=== PATIENT | female | born 1965 | race Caucasian/White ===

== ENCOUNTER 2017-11-04 05:08 | Inpatient (IN) | payer OTHER ==
[2017-10-30 08:17] VITALS: BMI 23.5
[~2017-11-04 05:08] MED LIST: BUPIVACAINE HCL/PF 0.5% (5MG/ML) 10 ML VIAL IJ ONE
[2017-11-04] MEDS ORDERED: BUPIVACAINE HCL/PF 0.5% (5MG/ML) 10 ML VIAL ONE (07:32)
[2017-11-04] MEDS ORDERED: LIDOCAINE 1%/EPI 1:100000 (20 ML MULTI DOSE VIAL) ONE (07:32)
[2017-11-04] MEDS ORDERED: GENTAMICIN SO4 80 MG/2 ML VIAL ONE (07:32)
[2017-11-04] MEDS ORDERED: THROMBIN (BOVINE) 5,000 UNIT VIAL TP ONE (07:33)
[2017-11-04] MEDS ORDERED: PROPOFOL 20 ML ONE (07:43)
[2017-11-04] MEDS ORDERED: MIDAZOLAM HCL 2 MG/2 ML SINGLE DOSE VIAL ONE (07:43)
[2017-11-04] MEDS ORDERED: ROCURONIUM BROMIDE 50 MG/5 ML VIAL ONE (07:45)
[2017-11-04] MEDS ORDERED: DEXAMETHASONE SOD PHOSPHATE 4 MG/1 ML VIAL ONE (07:46)
[2017-11-04] MEDS ORDERED: ceFAZolin SODIUM 1 GM VIAL ONE ×2 (07:46→08:20)
[2017-11-04] MEDS ORDERED: LIDOCAINE HCL/PF 2% SDV 5ML VIAL ONE (07:46)
[2017-11-04] MEDS ORDERED: SODIUM CHLORIDE 0.9% P/F 10 ML VIAL IJ ONE (07:46)
[2017-11-04] MEDS ORDERED: ONDANSETRON 4 MG/2 ML VIAL ONE (07:46)
[2017-11-04] MEDS ORDERED: VANCOMYCIN 1,000 MG VIAL (RESTRICTED TO ID ONLY) ONE (08:20)
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
[2017-11-04] MEDS ORDERED: ceFAZolin SODIUM 1 GM VIAL IVPB ONE (08:43)
[2017-11-04] MEDS ORDERED: VANCOMYCIN 1,000 MG VIAL (RESTRICTED TO ID ONLY) IVPB ONE (08:45)
[2017-11-04] MEDS ORDERED: LIDOCAINE 1%/EPI 1:100000 (20 ML MULTI DOSE VIAL) INF ONE (09:14)
[2017-11-04] MEDS ORDERED: GLYCOPYRROLATE 0.2 MG/1 ML VIAL ONE (10:24)
[2017-11-04] MEDS ORDERED: NEOSTIGMINE METHYLSULFATE 0.5 MG/ML - 10 ML MDV ONE (10:25)
[2017-11-04] MEDS ORDERED: GlUCAGON HUMAN RECOMBINANT 1 MG/VIAL ONE (10:26)
[2017-11-04] MEDS ORDERED: LIDOCAINE HCL 2% 100 MG/5 ML DISP.SYRIN ONE (10:40)
[2017-11-04] MEDS ORDERED: METOPROLOL TARTRATE 5 MG/5 ML VIAL ONE ×2 (10:46→10:47)
[2017-11-04] MEDS ORDERED: HYDROmorphone *PCA* 10MG/50ML DISP.SYRIN PCA SCH (11:00)
[2017-11-04] MEDS ORDERED: DEXAMETHASONE SOD PHOSPHATE 4 MG/1 ML VIAL IVPUSH PRN (11:00)
[2017-11-04] MEDS ORDERED: PROMETHAZINE HCL 25 MG/1 ML VIAL IVPB PRN (11:00)
[2017-11-04] MEDS ORDERED: PROMETHAZINE HCL 25 MG/1 ML VIAL IVPUSH PRN (11:00)
[2017-11-04] MEDS ORDERED: LACTATED RINGERS SOLUTION 1,000 ML IV SCH (11:00)
[2017-11-04] MEDS ORDERED: ONDANSETRON 4 MG/2 ML VIAL IVPUSH PRN ×2 (11:00)
[2017-11-04] MEDS ORDERED: ACETAMINOPHEN 325 MG TABLET (FP) PO PRN (11:11)
[2017-11-04] MEDS ORDERED: oxyCODONE HCL 5 MG TABLET PO PRN (11:21)
[2017-11-04] MEDS ORDERED: morphine CARPU-JECT 4 MG/1 ML DISP.SYRIN IVPUSH PRN (11:21)
--- NOTE | 2017-11-04 11:43 | OP ---
Operative Note - Note: Operative Date: 11/04/17 Pre-Operative Diagnosis: Cervical splondylolisthesis Operation: Anterior Cervical Discectomy and fusion C5-C6, C6-C7 Post-Operative Diagnosis: Same as Pre-op Surgeon: Amrit Chino Attendant Coin Operated Laundry: Maxine Levine Anesthesiologist/MISSILE AND MISSILE CHECKOUT TECHNICIAN: Ernie Laureano Anesthesia: General Specimens Removed: C5-C6 disc and C6-C7 disc Estimated Blood Loss (mls): 20 Fluid Volume Replaced (mls): 700 Operative Report Dictated: Yes
--- NOTE | 2017-11-04 11:45 | SURG ---
Surgery Registered Art Therapist Note Registered Art Therapist: Maxine Levine PA-C Date of Service: 11/04/17 Diagnosis: Cervical Splondylolisthesis Procedure: C5-C6, C6-C7 ACDF I was present for the entirety of the operative procedure. For further detail, please refer to operative report. Visit type - Case Type Case Type: Scheduled Admission - Emergency Emergency Visit: No - New patient This patient is new to me today: Yes Date on this admission: 11/04/17
[2017-11-04] MEDS ORDERED: ACETAMINOPHEN 325 MG TABLET (FP) PO SCH (11:46)
[2017-11-04] MEDS ORDERED: PROMETHAZINE HCL 25 MG/1 ML VIAL ONE (11:47)
--- NOTE | 2017-11-04 15:09 | CONSULT ---
Consult Consult Specialty:: Internal Medicine Referred by:: Dr Chino Reason for Consultation:: Medical management - History of Present Illness Chief Complaint: Unable to obtain History of Present Illness: Ms Summers is a 52 year old female who is s/p cervical discectomy and fusion. She is recently out of the OR and is still under the influence of anesthesia. While able to arouse, unable to elicit any subjective from patient secondary to anesthesia. 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 History of Recent Travel: No Home Medications - Allergies Allergies/Adverse Reactions: Allergies Allergy/AdvReac Type Severity Reaction Status Date / Time No Known Allergies Allergy Verified 11/04/17 06:49 - Home Medications Home Medications: Ambulatory Orders Ibuprofen [Advil -] 400 mg PO TID PRN 10/30/17 Family Disease History - Family Disease History Family History: Unable to Obtain Review of Systems Unable to obtain ROS, reason: anesthesia Physical Exam Vital Signs: Vital Signs Temperature 37.0 C 11/04/17 10:48 Pulse Rate 68 11/04/17 14:35 Respiratory Rate 18 11/04/17 14:35 Blood Pressure 131/71 11/04/17 14:35 O2 Sat by Pulse Oximetry (%) 100 11/04/17 14:35 Constitutional: Yes: No Distress, Calm, Other (lethargic but arousable) Cardiovascular: Yes: Regular Rate and Rhythm. No: Gallop, Murmur, Rub Respiratory: Yes: Regular, CTA Bilaterally. No: Rales, Rhonchi, Wheezes Gastrointestinal: Yes: Normal Bowel Sounds, Soft. No: Distention, Tenderness Extremities: Yes: WNL Edema: No Imaging - Results Cat Scan: Report Reviewed (pending), Image Reviewed Problem List - Problems (1) Spondylolysis with spondylolisthesis Assessment/Plan: -s/p surgery -per neurosurgery Code(s): M43.00 - SPONDYLOLYSIS, SITE UNSPECIFIED; M43.10 - SPONDYLOLISTHESIS, SITE UNSPECIFIED (2) Migraine Assessment/Plan: -history of -monitor Code(s): G43.909 - MIGRAINE, UNSP, NOT INTRACTABLE, WITHOUT STATUS MIGRAINOSUS (3) Pain Assessment/Plan: -continue dilaudid strategic insights lead at this time Code(s): R52 - PAIN, UNSPECIFIED (4) Left bundle branch block Assessment/Plan: -case d/w Dr Acosta -chronic -previous work up in past showed no pathology -stable Code(s): I44.7 - LEFT BUNDLE-BRANCH BLOCK, UNSPECIFIED
[2017-11-04] MEDS: morphine CARPU-JECT 10 MG/1 ML DISP.SYRIN IVPUSH PRN (15:50)
[2017-11-04] MEDS: LACTATED RINGERS SOLUTION 1,000 ML IV SCH ×2 (15:58→23:26)
[2017-11-04] MEDS ORDERED: CEFAZOLIN 1 GM/D5W 1 GM/50 ML BAG IVPB SCH (18:00)
[2017-11-04] MEDS: ACETAMINOPHEN 325 MG TABLET (FP) PO SCH (18:34)
[2017-11-04] MEDS ORDERED: CEFAZOLIN 1 GM PUSH 1 GM/10 ML DISP.SYRIN IVPUSH SCH (18:35)
[2017-11-04] MEDS: oxyCODONE HCL 5 MG TABLET PO PRN (19:45)
[2017-11-04] MEDS: CEFAZOLIN 1 GM PUSH 1 GM/10 ML DISP.SYRIN IVPUSH SCH (19:53)
[2017-11-04] MEDS ORDERED: PT OWN MED DRAWER 7, Y5N ONE (21:08)
[2017-11-04] MEDS: HEPARIN NA (PORCINE) 5,000 UNITS/ML 1ML VIAL SQ SCH (21:17)
[2017-11-05] MEDS: ACETAMINOPHEN 325 MG TABLET (FP) PO SCH ×5 (00:35→23:12)
[2017-11-05] MEDS: CEFAZOLIN 1 GM PUSH 1 GM/10 ML DISP.SYRIN IVPUSH SCH ×3 (01:11→17:20)
[2017-11-05] MEDS: HEPARIN NA (PORCINE) 5,000 UNITS/ML 1ML VIAL SQ SCH ×3 (05:37→21:31)
[2017-11-05] MEDS: oxyCODONE HCL 5 MG TABLET PO PRN ×3 (05:47→17:19)
--- NOTE | 2017-11-05 07:55 | PN ---
Progress Note (short form) - Note Progress Note: Surgery POD #1 C5-C6, C6-C7 ADCF patient seen and examined at bedside with no new complaints. The patient states she has a slight headache which is the same as her pre-op presentation and baseline for her. She says her radicular pain is already improved but paresthesias in UE unchanged. She has been tolerating a diet but says it's painful to swallow. She denies any CP, SOB, N/V/D or blurred vision. She is OOB with assist and voiding spontaneously. Vital Signs Temp 98.2 F 11/05/17 06:14 Pulse 64 11/05/17 06:14 Resp 20 11/05/17 06:14 BP 98/58 11/05/17 06:14 Pulse Ox 100 11/04/17 21:00 Intake & Output 11/04/17 11/04/17 11/05/17 11:59 23:59 11:59 Intake Total 3489 186 8386 Output Total 100 335 245 Balance 950 -235 1430 Intake: IV 0320 322 4142 Lactated Ringers Solution 1375 1,000 ml @ 125 mls/hr IV ASDIR DOUGLAS Rx#: [id number] Oral 300 Output: Drainage 35 45 Right Anterior Neck 45 Urine 50 300 200 Void 300 200 Estimated Blood Loss 50 Labs: pending PE: A&Ox 3, NAD unlabored resp on RA Dressing c/d/I with no evidence of d/c, no evidence of erythema or edema in surrounding tissue. RAKEL drain in place with SS d/c, put out 35 yesterday B/L UE sensation to light touch in tact throughout with 5/5 strength and well perfused distally B/L LE compartments soft, supple and non-tender with SCDs in place, Feet warm and well perfused with +2 pedal pulses and 5/5 dorsi and plantar flexion Assessment: POD #1 multilevel ACDF doing well. Plan: 1) Continue DVT prophylaxis b/l scds and heparin 2) C-Collar 23h/day, may remove to shower 3) no pillow behind head 4) Continue ancef while j/p drain in place 5) OOB as tolerated, up to chair for meals Problem List - Problems (1) Spondylolysis with spondylolisthesis Code(s): M43.00 - SPONDYLOLYSIS, SITE UNSPECIFIED; M43.10 - SPONDYLOLISTHESIS, SITE UNSPECIFIED
[2017-11-05 08:22] LABS: BASO % 0.3 % (0-2.0); HEMATOCRIT 35.1 % (32.4-45.2); HEMOGLOBIN 11.5 GM/dL (10.7-15.3); MCH 29.8 pg (25.7-33.7); MCHC 32.7 g/dl (32.0-36.0); MEAN PLT VOLUME 9.7 fl (7.5-11.1); MONO % 6.2 % (3.8-10.2); NEUT % 68.5 % (42.8-82.8); PLATELET COUNT 153 K/MM3 (134-434); RBC 3.86 M/mm3 (3.60-5.2); RDW 13.5 % (11.6-15.6)
[2017-11-05] MEDS: morphine CARPU-JECT 10 MG/1 ML DISP.SYRIN IVPUSH PRN ×3 (08:28→22:46)
[2017-11-05] MEDS: LACTATED RINGERS SOLUTION 1,000 ML IV SCH ×2 (08:32→15:46)
[2017-11-05 08:56] LABS: ALBUMIN 3.2 g/dl (3.4-5.0); ANION GAP 7 (8-16); BLOOD UREA NITROGEN 16 mg/dL (7-18); CALCIUM 8.7 mg/dL (8.5-10.1); CHLORIDE 102 mmol/L (98-107); CO2 33 mmol/L (21-32); CREATININE 0.7 mg/dL (0.55-1.02); GLUCOSE,RANDOM 92 mg/dL (74-106); MAGNESIUM 2.1 mg/dL (1.8-2.4); POTASSIUM 3.8 mmol/L (3.5-5.1); SGOT/AST 14 U/L (15-37); SGPT/ALT 20 U/L (12-78); SODIUM 142 mmol/L (136-145)
[2017-11-05 08:59] LABS: ALK PHOS 56 U/L (45-117); BILIRUBIN,TOTAL 0.4 mg/dL (0.2-1.0); PHOSPHOROUS 3.6 mg/dL (2.5-4.9); TOT PROT 5.7 g/dl (6.4-8.2)
--- NOTE | 2017-11-05 10:43 | PN ---
Progress Note, Physician Chief Complaint: Ms Summers says she feels terrible. States she has pain on swallowing and is having neck pain. - Current Medication List Current Medications: Active Medications Acetaminophen (Tylenol -) 650 mg PO Q6H [facility] Last Admin: 11/05/17 06:00 Dose: Not Given Diphenhydramine HCl (Benadryl Injection -) 12.5 mg IVPUSH ONCE PRN PRN Reason: FOR ITCHING Heparin Sodium (Porcine) (Heparin -) 5,000 unit SQ TID [facility] Last Admin: 11/05/17 05:37 Dose: 5,000 unit Lactated Ringer's (Lactated Ringers Solution) 1,000 mls @ 125 mls/hr IV ASDIR [facility] Last Admin: 11/05/17 08:32 Dose: 125 mls/hr Cefazolin Sodium (Ancef -) 1 gm in 10 mls @ 100 mls/hr IVPUSH Q8H-IV [facility] Last Admin: 11/05/17 01:11 Dose: 100 mls/hr Morphine Sulfate (Morphine Injection -) 3 mg IVPUSH Q4H PRN PRN Reason: PAIN LEVEL 7 - 10 Last Admin: 11/05/17 08:28 Dose: 3 mg Ondansetron HCl (Zofran Injection) 4 mg IVPUSH Q6H PRN PRN Reason: NAUSEA AND/OR VOMITING Oxycodone HCl (Roxicodone -) 5 mg PO Q4H PRN PRN Reason: PAIN LEVEL 1-4 Oxycodone HCl (Roxicodone -) 10 mg PO Q4H PRN PRN Reason: PAIN LEVEL 4 - 6 Last Admin: 11/05/17 05:47 Dose: 10 mg - Objective Vital Signs: Vital Signs Temperature 36.8 C 11/05/17 06:14 Pulse Rate 64 11/05/17 06:14 Respiratory Rate 20 11/05/17 06:14 Blood Pressure 98/58 11/05/17 06:14 O2 Sat by Pulse Oximetry (%) 100 11/04/17 21:00 Constitutional: Yes: Well Nourished, No Distress, Calm Neck: Yes: Other (in brace, RAKEL drain in place) Cardiovascular: Yes: Regular Rate and Rhythm. No: Gallop, Murmur, Rub Respiratory: Yes: Regular, CTA Bilaterally. No: Rales, Rhonchi, Wheezes Gastrointestinal: Yes: Normal Bowel Sounds, Soft. No: Distention, Tenderness Extremities: Yes: WNL Edema: No Labs: CBC, BMP 11/05/17 05:40 11/05/17 05:40 Problem List - Problems (1) Spondylolysis with spondylolisthesis Code(s): M43.00 - SPONDYLOLYSIS, SITE UNSPECIFIED; M43.10 - SPONDYLOLISTHESIS, SITE UNSPECIFIED (2) Migraine Code(s): G43.909 - MIGRAINE, UNSP, NOT INTRACTABLE, WITHOUT STATUS MIGRAINOSUS (3) Pain Code(s): R52 - PAIN, UNSPECIFIED (4) Left bundle branch block Code(s): I44.7 - LEFT BUNDLE-BRANCH BLOCK, UNSPECIFIED Assessment/Plan (1) Spondylolysis with spondylolisthesis Assessment/Plan: -neurosurgery note reviewed -continue empiric antibiotics Code(s): M43.00 - SPONDYLOLYSIS, SITE UNSPECIFIED; M43.10 - SPONDYLOLISTHESIS, SITE UNSPECIFIED (2) Migraine Assessment/Plan: -quiescent Code(s): G43.909 - MIGRAINE, UNSP, NOT INTRACTABLE, WITHOUT STATUS MIGRAINOSUS (3) Pain Assessment/Plan: -pain control per neurosurgery Code(s): R52 - PAIN, UNSPECIFIED (4) Left bundle branch block Assessment/Plan: -stable and unchanged Code(s): I44.7 - LEFT BUNDLE-BRANCH BLOCK, UNSPECIFIED
--- NOTE | 2017-11-05 13:57 | PN ---
Progress Note (short form) - Note Progress Note: Patient seen. Doing well on POD#1 after C5-C7 ACDF under [facility]. Dilaudid LOAN ANALYST was not started yesterday. Today pt is c/o intermittent pain being succefully rxd with MSO4 ivp and oxycodone prn. No sig N/V/pruritis/sedation. No recall or anesthesia related complications. Plan: cont present managment and recall prn
[2017-11-05] MEDS ORDERED: PT OWN MED DRAWER 7, Y5N ONE (19:11)
[2017-11-06] MEDS: morphine CARPU-JECT 10 MG/1 ML DISP.SYRIN IVPUSH PRN ×3 (03:56→18:25)
[2017-11-06] MEDS: HEPARIN NA (PORCINE) 5,000 UNITS/ML 1ML VIAL SQ SCH ×3 (05:58→21:00)
[2017-11-06] MEDS: ACETAMINOPHEN 325 MG TABLET (FP) PO SCH ×3 (05:59→20:49)
[2017-11-06] MEDS: oxyCODONE HCL 5 MG TABLET PO PRN ×4 (05:59→20:52)
[2017-11-06 08:03] LABS: BASO % 0.1 % (0-2.0); EOS % 0.1 % (0-4.5); HEMATOCRIT 34.9 % (32.4-45.2); HEMOGLOBIN 11.3 GM/dL (10.7-15.3); LYMPH % 14.4 % (8-40); MCH 29.6 pg (25.7-33.7); MCHC 32.4 g/dl (32.0-36.0); MEAN CELL VOLUME 91.4 fl (80-96); MEAN PLT VOLUME 9.5 fl (7.5-11.1); MONO % 5.9 % (3.8-10.2); NEUT % 79.5 % (42.8-82.8); PLATELET COUNT 121 K/MM3 (134-434); RBC 3.83 M/mm3 (3.60-5.2); RDW 13.6 % (11.6-15.6); WHITE BLOOD COUNT 9.3 K/mm3 (4.0-10.0)
[2017-11-06 08:24] LABS: CHLORIDE 100 mmol/L (98-107); POTASSIUM 3.8 mmol/L (3.5-5.1); SODIUM 139 mmol/L (136-145)
[2017-11-06 08:36] LABS: ALBUMIN 3.4 g/dl (3.4-5.0); ALK PHOS 55 U/L (45-117); ANION GAP 6 (8-16); BILIRUBIN,TOTAL 0.4 mg/dL (0.2-1.0); BLOOD UREA NITROGEN 13 mg/dL (7-18); CALCIUM 8.3 mg/dL (8.5-10.1); CO2 33 mmol/L (21-32); CREATININE 0.7 mg/dL (0.55-1.02); GLUCOSE,RANDOM 93 mg/dL (74-106); SGOT/AST 12 U/L (15-37); SGPT/ALT 20 U/L (12-78); TOT PROT 5.8 g/dl (6.4-8.2)
[2017-11-06] MEDS: ONDANSETRON 4 MG/2 ML VIAL IVPUSH PRN (09:02)
--- NOTE | 2017-11-06 09:24 | PN ---
Progress Note (short form) - Note Progress Note: Surgery POD #2 C5-C6, C6-C7 ADCF patient seen and examined at bedside. Patient states she is still having chest tightness and SOB when she ambulates. which she feels is related to her pain. She denies any H/A this morning but states her radicular pain and paresthesias in upper extremities remains unchanged. She has been tolerating liquids but says it's very painful to swallow, she has not wanted to eat solids 2/2 pain and nausea. She denies any vomiting or blurred vision. She is OOB with assist and voiding spontaneously. Vital Signs Temp 100.9 F H 18 06:00 Pulse 75 11/06/17 06:00 Resp 18 11/06/17 06:00 BP 121/56 11/06/17 06:00 Pulse Ox 100 11/05/17 21:00 Intake & Output 18 18 11/06/17 11:59 23:59 11:59 Intake Total 1675 250 Output Total 245 20 Balance 1430 230 Intake: IV 1375 Lactated Ringers Solution 1375 1,000 ml @ 125 mls/hr IV ASDIR DOUGLAS Rx#: [id number] Oral 300 250 Output: Drainage 45 20 Right Anterior Neck 45 20 Urine 200 Void 200 Other: Voiding Method Toilet Toilet # Unmeasured Voids Void 2 CBC, BMP 18/18 06:30 11/06/17 06:30 PE: A&Ox 3, NAD unlabored resp on 2L NC Lungs CTA B/L Dressing c/d/I, with ttp at drain site, no evidence of d/c or erythema in surrounding tissues. Mild edema surrounding incision site appropriate to status , trachea is midline. incision redressed with 4x4 and op sites x 2 B/L UE sensation to light touch in tact throughout with 5/5 strength and well perfused distally B/L LE compartments soft, supple and non-tender with SCDs in place, Feet warm and well perfused with +2 pedal pulses and 5/5 dorsi and plantar flexion Assessment: POD #2 multilevel ACDF with Some chest pain and SOB in the setting of negative CEx1 and evidence of early pna on CXR. Plan: 1) Continue DVT prophylaxis b/l scds and heparin 2) C-Collar 23h/day, may remove to shower 3) no pillow behind head 4) Cardiology consult appreciated 5) OOB as tolerated, up to chair for meals 6) trial O2 sats on RA, watch for desaturation. Evaluation and plan discussed with Dr Chino Problem List - Problems (1) Spondylolysis with spondylolisthesis Code(s): M43.00 - SPONDYLOLYSIS, SITE UNSPECIFIED; M43.10 - SPONDYLOLISTHESIS, SITE UNSPECIFIED
--- NOTE | 2017-11-06 12:33 | EKG ---
Test Reason : Blood Pressure : / mmHG Vent. Rate : 064 BPM Atrial Rate : 064 BPM P-R Int : 142 ms QRS Dur : 120 ms QT Int : 430 ms P-R-T Axes : 065 020 049 degrees QTc Int : 443 ms NORMAL SINUS RHYTHM LOW VOLTAGE QRS CANNOT RULE OUT ANTERIOR INFARCT , AGE UNDETERMINED ABNORMAL ECG WHEN COMPARED WITH ECG OF 25-APR-2011 15:37, QRS DURATION HAS INCREASED MINIMAL CRITERIA FOR ANTERIOR INFARCT ARE NOW PRESENT Confirmed by KARMEN PACHECO MD ([id number]) on 11/06/2017 12:33:15 PM Referred By: Confirmed By:KARMEN PACHECO MD
--- NOTE | 2017-11-06 12:36 | PN ---
Progress Note, Physician Chief Complaint: Ms Summers continues to not feel well. Complains of neck pain, difficulty swallowing, and chest tightness - Current Medication List Current Medications: Active Medications Acetaminophen (Tylenol -) 650 mg PO Q6H [facility] Last Admin: 11/06/17 05:59 Dose: 650 mg Diphenhydramine HCl (Benadryl Injection -) 12.5 mg IVPUSH ONCE PRN PRN Reason: FOR ITCHING Heparin Sodium (Porcine) (Heparin -) 5,000 unit SQ TID [facility] Last Admin: 11/06/17 05:58 Dose: 5,000 unit Morphine Sulfate (Morphine Injection -) 3 mg IVPUSH Q4H PRN PRN Reason: PAIN LEVEL 7 - 10 Last Admin: 11/06/17 09:02 Dose: 3 mg Ondansetron HCl (Zofran Injection) 4 mg IVPUSH Q6H PRN PRN Reason: NAUSEA AND/OR VOMITING Last Admin: 11/06/17 09:02 Dose: 4 mg Oxycodone HCl (Roxicodone -) 5 mg PO Q4H PRN PRN Reason: PAIN LEVEL 1-4 Last Admin: 11/05/17 21:01 Dose: 5 mg Oxycodone HCl (Roxicodone -) 10 mg PO Q4H PRN PRN Reason: PAIN LEVEL 4 - 6 Last Admin: 11/06/17 10:51 Dose: 10 mg - Objective Vital Signs: Vital Signs Temperature 38.3 C H 11/06/17 06:00 Pulse Rate 84 11/06/17 11:05 Respiratory Rate 18 11/06/17 06:00 Blood Pressure 121/56 11/06/17 06:00 O2 Sat by Pulse Oximetry (%) 94 L 11/06/17 11:05 Constitutional: Yes: Well Nourished, No Distress, Calm Neck: Yes: Other (in hard brace) Cardiovascular: Yes: Regular Rate and Rhythm. No: Gallop, Murmur, Rub Respiratory: Yes: Regular, CTA Bilaterally. No: Rales, Rhonchi, Wheezes Gastrointestinal: Yes: Normal Bowel Sounds, Soft. No: Distention, Tenderness Extremities: Yes: WNL Edema: No Labs: CBC, BMP 11/06/17 06:30 11/06/17 06:30 Problem List - Problems (1) Spondylolysis with spondylolisthesis Code(s): M43.00 - SPONDYLOLYSIS, SITE UNSPECIFIED; M43.10 - SPONDYLOLISTHESIS, SITE UNSPECIFIED (2) Migraine Code(s): G43.909 - MIGRAINE, UNSP, NOT INTRACTABLE, WITHOUT STATUS MIGRAINOSUS (3) Pain Code(s): R52 - PAIN, UNSPECIFIED (4) Left bundle branch block Code(s): I44.7 - LEFT BUNDLE-BRANCH BLOCK, UNSPECIFIED (5) Chest pain Code(s): R07.9 - CHEST PAIN, UNSPECIFIED (6) Atelectasis Code(s): J98.11 - ATELECTASIS Assessment/Plan (1) Spondylolysis with spondylolisthesis Assessment/Plan: -neurosurgery note reviewed -continue empiric antibiotics Code(s): M43.00 - SPONDYLOLYSIS, SITE UNSPECIFIED; M43.10 - SPONDYLOLISTHESIS, SITE UNSPECIFIED (2) Migraine Assessment/Plan: -quiescent Code(s): G43.909 - MIGRAINE, UNSP, NOT INTRACTABLE, WITHOUT STATUS MIGRAINOSUS (3) Pain Assessment/Plan: -pain control per neurosurgery Code(s): R52 - PAIN, UNSPECIFIED (4) Left bundle branch block Assessment/Plan: -stable and unchanged Code(s): I44.7 - LEFT BUNDLE-BRANCH BLOCK, UNSPECIFIED (5) Atypical chest pain -EKG unchanged -cardiac enzymes negative -chest x-ray reviewed -low suspicion for ACS -cardiology consulted (6) Atelectasis -suspect cause of fevers and dyspnea -chest x-ray reviewed, low suspicion for pneumonia -continued use of incentive spirometer
--- NOTE | 2017-11-06 17:53 | CON.CARD ---
Cardiology Consult (text) - Consultation Consultation Note: CC: CP 52 yo with h/o LBBB female who is s/p cervical discectomy and fusion 11/04, hospital course complicated by CP. + substernal pressure/heaviness constant since yesterday. worse with deep breaths, small changes in position. worse lying down. seemed to worsen with exertion (unclear if from exertion or from need to take deeper breaths. radiation across the chest to both arms. + assoc shortness of breath. not ttp. no prior episodes of similar pain. no signficant improvement with pain medication. has not exercised for the past year due to back pain, h/a, chronic nausea. no palps, dizziness, orthopnea, pnd, le edema, bleeding. + pain with swallowing since surgery. --> poor po intake. IVF s/p surgery --> now off. pmhx/pshx: per phi. additionally Migraine (stress incontinence neck pain with upper extremity radiculopathy, limited c spine ROM) social hx: social etoh, Former smoker (quit in 1994) fam hx: mom--CHF in her late 60's but no CAD, sister--?CMPathy but she's athletic--runs marathons ros: per hpi. no rashes, visual disturbances, vomiting, diarrhea, f/c/s, congestion. Ambulatory Orders Ibuprofen [Advil -] 400 mg PO TID PRN 10/30/17 Oxycodone HCl/Acetaminophen [Percocet 5-325 mg Tablet] 1 - 2 tab PO Q6H PRN #30 tab MDD 8 11/05/17 Current Medications Acetaminophen (Tylenol -) 650 mg PO Q6H [facility] Last Admin: 11/06/17 14:32 Dose: 650 mg Diphenhydramine HCl (Benadryl Injection -) 12.5 mg IVPUSH ONCE PRN PRN Reason: FOR ITCHING Heparin Sodium (Porcine) (Heparin -) 5,000 unit SQ TID [facility] Last Admin: 11/06/17 14:33 Dose: 5,000 unit Morphine Sulfate (Morphine Injection -) 3 mg IVPUSH Q4H PRN PRN Reason: PAIN LEVEL 7 - 10 Last Admin: 11/06/17 09:02 Dose: 3 mg Ondansetron HCl (Zofran Injection) 4 mg IVPUSH Q6H PRN PRN Reason: NAUSEA AND/OR VOMITING Last Admin: 11/06/17 09:02 Dose: 4 mg Oxycodone HCl (Roxicodone -) 5 mg PO Q4H PRN PRN Reason: PAIN LEVEL 1-4 Last Admin: 11/05/17 21:01 Dose: 5 mg Oxycodone HCl (Roxicodone -) 10 mg PO Q4H PRN PRN Reason: PAIN LEVEL 4 - 6 Last Admin: 11/06/17 15:44 Dose: 10 mg Vital Signs - 24 hr 11/05/17 11/06/17 11/06/17 21:00 02:12 06:00 Temperature 99.6 F 100.9 F H Pulse Rate 74 75 Respiratory 18 18 18 Rate Blood Pressure 129/70 121/56 O2 Sat by Pulse 100 Oximetry (%) 11/06/17 11/06/17 11/06/17 09:00 10:00 11:05 Temperature 98.8 F Pulse Rate 70 84 Respiratory 18 Rate Blood Pressure 117/59 O2 Sat by Pulse 94 L 94 L Oximetry (%) 11/06/17 11/06/17 15:09 16:20 Temperature 98.2 F 99.4 F Pulse Rate 81 70 Respiratory 16 20 Rate Blood Pressure 119/58 122/61 O2 Sat by Pulse Oximetry (%) Intake & Output 11/04/17 11/05/17 11/06/17 11/07/17 07:59 07:59 07:59 07:59 Intake Total 2825 250 200 Output Total 680 20 Balance 2145 230 200 nad, calm unable to assess jvd (neck immbolizer) ctab, nl effort rrr nl s1, s2 no mrg. no ttp non-displaced pmi + bs soft nt nd, no hsm. ext with trace edema. no cyanosis or clubbing. + dp/pt no carotid bruits no jaundice, diaphoresis aaox3 CBC, BMP 11/06/17 06:30 11/06/17 06:30 Laboratory Tests 11/05/17 11/05/17 11/06/17 05:40 17:20 06:30 Magnesium 2.1 Total Bilirubin 0.4 AST 12 L ALT 20 Alkaline Phosphatase 55 Creatine Kinase 157 Creatine Kinase Index 0.6 CK-MB (CK-2) < 1.000 Troponin I < 0.02 Albumin 3.4 ekg: nsr, ivcb. loss of r wave in limb leads. low voltages in precordial leads. Findings similar to office ekg from 2016. cxr images and report reviewed: vague focal opacity in left lung base, atelectasis vs. pna. no vascular congestion or pleural effusion. Echo 01/2015: normal LV/RV function, 1+ mr 52 yo with h/o LBBB female who is s/p cervical discectomy and fusion 11/04, hospital course complicated by CP. CP - CXR findings noted. Will defer to pmd regarding clinical suspicion for pna. Incentive spirometry - ekg without acute ischemic changes. ce's neg x 1 yesterday. added second set to this morning's labs. - pain pleuritic in nature, ? positional. repeat echo to assess for rwma, pleural effusion or RV compromise. Consider LE dopplers. LBBB - evaluated with echo in 2014 --> no structural abnormalities. - current ekg, similar to priors. s/p cervical discectomy - surgery following, pain well controlled.
[2017-11-07] MEDS: ACETAMINOPHEN 325 MG TABLET (FP) PO SCH ×5 (03:08→23:10)
[2017-11-07] MEDS: oxyCODONE HCL 5 MG TABLET PO PRN ×4 (04:45→22:04)
[2017-11-07] MEDS: HEPARIN NA (PORCINE) 5,000 UNITS/ML 1ML VIAL SQ SCH ×3 (06:17→22:04)
[2017-11-07 08:19] LABS: BASO % 0.2 % (0-2.0); EOS % 0.5 % (0-4.5); HEMATOCRIT 34.5 % (32.4-45.2); HEMOGLOBIN 11.4 GM/dL (10.7-15.3); LYMPH % 17.8 % (8-40); MCH 29.6 pg (25.7-33.7); MEAN CELL VOLUME 89.7 fl (80-96); MEAN PLT VOLUME 9.3 fl (7.5-11.1); NEUT % 75.5 % (42.8-82.8); PLATELET COUNT 108 K/MM3 (134-434); RBC 3.85 M/mm3 (3.60-5.2); RDW 13.4 % (11.6-15.6); WHITE BLOOD COUNT 7.5 K/mm3 (4.0-10.0)
[2017-11-07 08:38] LABS: ALBUMIN 3.4 g/dl (3.4-5.0); ANION GAP 5 (8-16); BLOOD UREA NITROGEN 11 mg/dL (7-18); CALCIUM 8.4 mg/dL (8.5-10.1); CHLORIDE 98 mmol/L (98-107); CO2 34 mmol/L (21-32); GLUCOSE,RANDOM 78 mg/dL (74-106); POTASSIUM 3.8 mmol/L (3.5-5.1); SGOT/AST 13 U/L (15-37); SGPT/ALT 21 U/L (12-78); SODIUM 137 mmol/L (136-145)
[2017-11-07 08:41] LABS: ALK PHOS 55 U/L (45-117); BILIRUBIN,TOTAL 0.6 mg/dL (0.2-1.0); CREATININE 0.6 mg/dL (0.55-1.02)
--- NOTE | 2017-11-07 12:57 | PN ---
Progress Note, Physician Chief Complaint: Ms Summers is more mobile today, but had some nausea with exertion. SOB improved. No cp currently. - Current Medication List Current Medications: Active Medications Acetaminophen (Tylenol -) 650 mg PO Q6H [facility] Last Admin: 11/07/17 06:16 Dose: 650 mg Diphenhydramine HCl (Benadryl Injection -) 12.5 mg IVPUSH ONCE PRN PRN Reason: FOR ITCHING Heparin Sodium (Porcine) (Heparin -) 5,000 unit SQ TID [facility] Last Admin: 11/07/17 06:17 Dose: 5,000 unit Morphine Sulfate (Morphine Injection -) 3 mg IVPUSH Q4H PRN PRN Reason: PAIN LEVEL 7 - 10 Last Admin: 11/06/17 18:25 Dose: 3 mg Ondansetron HCl (Zofran Injection) 4 mg IVPUSH Q6H PRN PRN Reason: NAUSEA AND/OR VOMITING Last Admin: 11/06/17 09:02 Dose: 4 mg - Objective Vital Signs: Vital Signs Temperature 37.0 C 11/07/17 10:00 Pulse Rate 72 11/07/17 10:00 Respiratory Rate 20 11/07/17 10:00 Blood Pressure 119/65 11/07/17 10:00 O2 Sat by Pulse Oximetry (%) 97 11/07/17 09:00 Constitutional: Yes: Well Nourished, No Distress, Calm Cardiovascular: Yes: Regular Rate and Rhythm. No: Gallop, Murmur, Rub Respiratory: Yes: Regular, CTA Bilaterally. No: Rales, Rhonchi, Wheezes Gastrointestinal: Yes: Normal Bowel Sounds, Soft. No: Distention, Tenderness Extremities: Yes: WNL Edema: No Labs: CBC, BMP 11/07/17 07:20 11/07/17 07:20 Problem List - Problems (1) Spondylolysis with spondylolisthesis Code(s): M43.00 - SPONDYLOLYSIS, SITE UNSPECIFIED; M43.10 - SPONDYLOLISTHESIS, SITE UNSPECIFIED (2) Migraine Code(s): G43.909 - MIGRAINE, UNSP, NOT INTRACTABLE, WITHOUT STATUS MIGRAINOSUS (3) Pain Code(s): R52 - PAIN, UNSPECIFIED (4) Left bundle branch block Code(s): I44.7 - LEFT BUNDLE-BRANCH BLOCK, UNSPECIFIED (5) Chest pain Code(s): R07.9 - CHEST PAIN, UNSPECIFIED (6) Atelectasis Code(s): J98.11 - ATELECTASIS Assessment/Plan (1) Spondylolysis with spondylolisthesis Assessment/Plan: -neurosurgery note reviewed -empiric antibiotics discontinued Code(s): M43.00 - SPONDYLOLYSIS, SITE UNSPECIFIED; M43.10 - SPONDYLOLISTHESIS, SITE UNSPECIFIED (2) Migraine Assessment/Plan: -quiescent Code(s): G43.909 - MIGRAINE, UNSP, NOT INTRACTABLE, WITHOUT STATUS MIGRAINOSUS (3) Pain Assessment/Plan: -pain control per neurosurgery Code(s): R52 - PAIN, UNSPECIFIED (4) Left bundle branch block Assessment/Plan: -stable and unchanged Code(s): I44.7 - LEFT BUNDLE-BRANCH BLOCK, UNSPECIFIED (5) Atypical chest pain -appreciate cardiology assistance -cardiac enzymes negative -EKG unchanged -ECHO reviewed, no acute pathology -duplex dopplers negative (6) Atelectasis -continue I/S Dispo -possible discharge in am
[2017-11-07] MEDS: morphine CARPU-JECT 10 MG/1 ML DISP.SYRIN IVPUSH PRN (14:00)
[2017-11-07] MEDS ORDERED: oxyCODONE HCL 5 MG TABLET PO PRN (14:28)
--- NOTE | 2017-11-07 16:53 | PN ---
Progress Note (short form) - Note Progress Note: Surgery POD #3 C5-C6, C6-C7 [facility] patient seen and examined at bedside. Patient states she is still having chest tightness and SOB when she ambulates although she feels this is improving slightly. She continues to have H/A which is unchanged from her baseline, and her radicular pain and paresthesias in upper extremities remains unchanged. She has been tolerating liquids but says it's very painful to swallow, she has not wanted to eat solids 2/2 pain and nausea. She denies any vomiting or blurred vision. She is OOB with assist and voiding spontaneously. Vital Signs Temp 99.0 F 11/07/17 14:25 Pulse 72 11/07/17 14:25 Resp 20 11/07/17 14:25 BP 124/70 11/07/17 14:25 Pulse Ox 97 11/07/17 09:00 Intake & Output 11/06/17 11/07/17 11/07/17 23:59 11:59 23:59 Intake Total 200 Balance 200 Intake: Oral 200 Other: Voiding Method Toilet Toilet Bowel Movement No CBC, BMP 18 07:20 11/07/17 07:20 PE: A&Ox 3, NAD unlabored resp on RA Dressing c/d/I, mildly ttp at drain site, no evidence of d/c or erythema in surrounding tissues. trachea is midline. B/L UE sensation to light touch in tact throughout with 5/5 strength and well perfused distally B/L LE compartments soft, supple and non-tender with SCDs in place, Feet warm and well perfused with +2 pedal pulses and 5/5 dorsi and plantar flexion Assessment: POD #3 multilevel ACDF with Some chest pain and SOB which is improving in the setting of negative cardiac work up. Plan: 1) Continue DVT prophylaxis b/l scds and heparin 2) C-Collar 23h/day, may remove to shower 3) no pillow behind head 4) OOB as tolerated, up to chair for meals 5) D/c planning for tomorrow if medically stable Evaluation and plan discussed with Dr Chino Problem List - Problems (1) Spondylolysis with spondylolisthesis Code(s): M43.00 - SPONDYLOLYSIS, SITE UNSPECIFIED; M43.10 - SPONDYLOLISTHESIS, SITE UNSPECIFIED
--- NOTE | 2017-11-07 17:27 | PN ---
Progress Note (short form) - Note Progress Note: CC: CP S: still with pleuritic and mildly exertional chest tightness and mild espinal but improving. no palps, dizziness. Current Medications Acetaminophen (Tylenol -) 650 mg PO Q6H [facility] Last Admin: 11/07/17 14:01 Dose: 650 mg Diphenhydramine HCl (Benadryl Injection -) 12.5 mg IVPUSH ONCE PRN PRN Reason: FOR ITCHING Docusate Sodium (Colace -) 100 mg PO TID [facility] Heparin Sodium (Porcine) (Heparin -) 5,000 unit SQ TID [facility] Last Admin: 11/07/17 14:17 Dose: 5,000 unit Ondansetron HCl (Zofran Injection) 4 mg IVPUSH Q6H PRN PRN Reason: NAUSEA AND/OR VOMITING Last Admin: 11/06/17 09:02 Dose: 4 mg Oxycodone HCl (Roxicodone -) 5 mg PO Q4H PRN PRN Reason: PAIN LEVEL 1-5 Oxycodone HCl (Roxicodone -) 10 mg PO Q4H PRN PRN Reason: PAIN LEVEL 6-10 Last Admin: 11/07/17 16:57 Dose: 10 mg Vital Signs - 24 hr 11/06/17 11/06/17 11/07/17 20:00 21:00 00:00 Temperature 98.9 F 99.0 F Pulse Rate 70 Respiratory 20 20 Rate Blood Pressure 123/53 126/79 O2 Sat by Pulse Oximetry (%) 11/07/17 11/07/17 11/07/17 04:00 06:45 09:00 Temperature 99.1 F 100.1 F H Pulse Rate 79 80 Respiratory 20 20 Rate Blood Pressure 135/77 155/64 O2 Sat by Pulse 97 Oximetry (%) 11/07/17 11/07/17 10:00 14:25 Temperature 98.6 F 99.0 F Pulse Rate 72 72 Respiratory 20 20 Rate Blood Pressure 119/65 124/70 O2 Sat by Pulse Oximetry (%) Intake & Output 11/05/17 11/06/17 11/07/17 11/08/17 07:59 07:59 07:59 07:59 Intake Total 2825 250 200 Output Total 680 20 Balance 2145 230 200 nad, calm unable to assess jvd (neck immbolizer) ctab, nl effort rrr nl s1, s2 no mrg. no ttp non-displaced pmi + bs soft nt nd, no hsm. nl le e/c/c + dp/pt no carotid bruits no jaundice, diaphoresis aaox3 CBC, BMP 11/07/17 07:20 11/07/17 07:20 Laboratory Tests 11/05/17 11/06/17 11/06/17 17:20 06:30 06:30 Plt Count 121 L D Troponin I < 0.02 < 0.02 Albumin 11/07/17 07:20 Plt Count Troponin I Albumin 3.4 ekg: nsr, ivcb. loss of r wave in limb leads. low voltages in precordial leads. Findings similar to office ekg from 2016. cxr images and report reviewed: vague focal opacity in left lung base, atelectasis vs. pna. no vascular congestion or pleural effusion. Echo 10/2017: nl lv/rv size/fn. lbbb septal motion. nl valves. rvsp 30-40. Echo 01/2015: normal LV/RV function, 1+ mr 52 yo with h/o LBBB female who is s/p cervical discectomy and fusion 11/04, hospital course complicated by CP. CP - CXR findings noted. Will defer to pmd regarding clinical suspicion for pna. Incentive spirometry - ekg without acute ischemic changes. ce's neg x 2. Echo wnl - nl systolic fn. no rv abnormality that may suggest PE. (LE dopplers also neg for dvt). no pericardial effusion suggestive of pericarditis. - pain pleuritic in nature, msk vs. related to cervical pathology vs infectious? . defer to pmd/surg regarding eval/mgm't of non-cardiac etiology. LBBB - evaluated with echo in 2014 --> no structural abnormalities. Repeat echo here wnl. - current ekg, similar to priors. s/p cervical discectomy - surgery following, pain well controlled. thrombocytopenia - per pmd
[2017-11-07] MEDS: DOCUSATE SODIUM 100 MG CAPSULE (FP) PO SCH (22:04)
[2017-11-08] MEDS: ACETAMINOPHEN 325 MG TABLET (FP) PO SCH ×2 (06:33→12:26)
[2017-11-08] MEDS: HEPARIN NA (PORCINE) 5,000 UNITS/ML 1ML VIAL SQ SCH ×2 (06:35→14:12)
[2017-11-08] MEDS: DOCUSATE SODIUM 100 MG CAPSULE (FP) PO SCH ×2 (06:35→14:08)
[2017-11-08] MEDS: oxyCODONE HCL 5 MG TABLET PO PRN ×2 (06:39→09:48)
[2017-11-08 08:23] LABS: BASO % 0.5 % (0-2.0); EOS % 2.3 % (0-4.5); HEMOGLOBIN 12.8 GM/dL (10.7-15.3); LYMPH % 23.4 % (8-40); MCH 29.3 pg (25.7-33.7); MCHC 32.8 g/dl (32.0-36.0); MEAN CELL VOLUME 89.6 fl (80-96); MEAN PLT VOLUME 9.5 fl (7.5-11.1); MONO % 6.4 % (3.8-10.2); NEUT % 67.4 % (42.8-82.8); PLATELET COUNT 137 K/MM3 (134-434); RBC 4.35 M/mm3 (3.60-5.2); RDW 13.2 % (11.6-15.6); WHITE BLOOD COUNT 5.9 K/mm3 (4.0-10.0)
[2017-11-08 09:10] LABS: ALBUMIN 3.6 g/dl (3.4-5.0); BILIRUBIN,TOTAL 0.5 mg/dL (0.2-1.0); CHLORIDE 98 mmol/L (98-107); CREATININE 0.6 mg/dL (0.55-1.02); POTASSIUM 4.4 mmol/L (3.5-5.1); SGOT/AST 26 U/L (15-37); SGPT/ALT 31 U/L (12-78); SODIUM 140 mmol/L (136-145); TOT PROT 6.7 g/dl (6.4-8.2)
[2017-11-08 09:12] LABS: ALK PHOS 62 U/L (45-117); ANION GAP 8 (8-16); BLOOD UREA NITROGEN 8 mg/dL (7-18); CO2 34 mmol/L (21-32); GLUCOSE,RANDOM 70 mg/dL (74-106)
[2017-11-08] MEDS ORDERED: PT OWN MED DRAWER 7, Y5N ONE (09:46)
[2017-11-08] MEDS: ONDANSETRON 4 MG/2 ML VIAL IVPUSH PRN (14:11)
--- NOTE | 2017-11-08 14:11 | PN ---
Progress Note, Physician Chief Complaint: still c/o pain - Current Medication List Current Medications: Active Medications Acetaminophen (Tylenol -) 650 mg PO Q6H [facility] Last Admin: 11/08/17 12:26 Dose: 650 mg Diphenhydramine HCl (Benadryl Injection -) 12.5 mg IVPUSH ONCE PRN PRN Reason: FOR ITCHING Docusate Sodium (Colace -) 100 mg PO TID [facility] Last Admin: 11/08/17 06:35 Dose: 100 mg Heparin Sodium (Porcine) (Heparin -) 5,000 unit SQ TID [facility] Last Admin: 11/08/17 06:35 Dose: 5,000 unit Ondansetron HCl (Zofran Injection) 4 mg IVPUSH Q6H PRN PRN Reason: NAUSEA AND/OR VOMITING Last Admin: 11/06/17 09:02 Dose: 4 mg Oxycodone HCl (Roxicodone -) 5 mg PO Q4H PRN PRN Reason: PAIN LEVEL 1-5 Oxycodone HCl (Roxicodone -) 10 mg PO Q4H PRN PRN Reason: PAIN LEVEL 6-10 Last Admin: 11/08/17 09:48 Dose: 10 mg - Objective Vital Signs: Vital Signs Temperature 99 F 11/08/17 09:00 Pulse Rate 66 11/08/17 09:00 Respiratory Rate 18 11/08/17 09:00 Blood Pressure 142/69 11/08/17 09:00 O2 Sat by Pulse Oximetry (%) 96 11/07/17 21:00 GE: Young F denies any C/O nausea, c/o mild Neck pain HEENT: MM Moist, no anemia, PERRLA, EOMI NECK: In Hard Cervical collar, No JVD No [place]uit CHEST: CTA B/L CVS: S1S2 R no m/g/r ABD: No distention, non tender Bs + EXT: Trace edema 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
[2017-11-08 14:37] VITALS: BP 121/63; PULSE 68; TEMP 98
--- NOTE | 2017-11-08 15:04 | HOSP ---
Physical Examination Vital Signs: Vital Signs Temperature 98.0 F 11/08/17 14:35 Pulse Rate 68 11/08/17 14:35 Respiratory Rate 16 11/08/17 14:35 Blood Pressure 121/63 11/08/17 14:35 O2 Sat by Pulse Oximetry (%) 96 11/07/17 21:00 Labs: CBC, BMP 11/08/17 07:30 11/08/17 07:30
--- NOTE | 2017-11-12 20:45 | DS ---
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 worse with deep breaths, small changes in position. Evaluated by cardiology consult, charred to Dc Home Labs: CBC, BMP 11/08/17 07:30 11/08/17 07:30 Discharge Summary Reason For Visit: CERVICAL SPONDYLOTIC MYELOPATHY, TRAUMATIC DISC HE Condition: Stable - Instructions Diet, Activity, Other Instructions: Dr. Chino Discharge Instructions Dear Phyllis Summers, Post Operative Instructions Physical activity Resume your normal everyday activity as tolerated no heavy lifting or exercise until seen by your surgeon. You may walk unlimited amounts of and climb stairs. You may resume driving the car once cleared by your surgeon. Wear your C-collar 23hours/day only removing it to shower. No pillow behind head until cleared by your surgeon Wound care Keep incision clean and dry. you may shower but do not submerge the incision. Diet There are no dietary restrictions. Eat healthy, high-fiber foods. Drink 6 to 8 glasses of liquid each day. This will assist in keeping your bowels are regular. Pain management You may take Tylenol or acetaminophen. Any pain prescription medication ordered should be taken as prescribed for moderate to severe pain. Call Dr. Chino for any of the following: Severe pain not relieved by medication Fever of 101 or higher Excessive bleeding or drainage New or worsening pain or weakness in extremities Call the office for a post operative appointment once you return home from the hospital. This report was requested by: Sita Reynaga | Reference #: [id number] Referrals: Amrit Chino MD, FAANS [Staff Physician] - 1 Week Disposition: HOME - Home Medications Comprehensive Discharge Medication List: Ambulatory Orders Ibuprofen [Advil -] 400 mg PO TID PRN 10/30/17 Oxycodone HCl/Acetaminophen [Percocet 5-325 mg Tablet] 1 - 2 tab PO Q6H PRN #30 tab MDD 8 11/05/17"
== END 2017-11-08 15:25 | disposition home or self-care (01) | DRG 321 ==
LOC: JSAMEDAYSX 05:08 → EDSTATUS 08:00 → J8W 15:03
PROVIDERS: ADMIT Neurological Surgery; ATTEND Neurological Surgery
PROC: 0RG20AJ Fusion of 2 or more Cervical Vertebral Joints with Interbody Fusion Device, Posterior Approach, Anterior Column, Open Approach (ICD-10-PCS; 2017-11-04)
PROC: 0RG2071 Fusion of 2 or more Cervical Vertebral Joints with Autologous Tissue Substitute, Posterior Approach, Posterior Column, Open Approach (ICD-10-PCS; 2017-11-04)
PROC: 0RB30ZZ Excision of Cervical Vertebral Disc, Open Approach (ICD-10-PCS; principal; 2017-11-04 08:00)
DX: M43.12 Spondylolisthesis, cervical region (principal); M50.022 Cervical disc disorder at C5-C6 level with myelopathy; M50.023 Cervical disc disorder at C6-C7 level with myelopathy; J98.11 Atelectasis; I44.7 Left bundle-branch block, unspecified; D69.6 Thrombocytopenia, unspecified; Z87.891 Personal history of nicotine dependence
CPT/HCPCS: 36415; 71045-TC; 72125-TC; 76000-TC-FY; 80053; 82550; 82553; 83735; 84100; 84484; 84703; 85025; 86850; 86900; 86901; 86922; 93005; 93010; 93306-TC; 93970-TC; 94010; 94760; 97116-GP; 97161-GP; J1644